=== PATIENT | male | born 1945 | race Caucasian/White ===

== ENCOUNTER 2024-09-01 14:28 | Outpatient (CLI) | payer MEDICARE | END 2024-09-01 14:29 | disposition home or self-care (01) | LOC: CSHULT 14:28 | PROVIDERS: ATTEND Family Medicine | DX: R06.09 Other forms of dyspnea (principal); R06.01 Orthopnea; I25.10 Atherosclerotic heart disease of native coronary artery without angina pectoris; R01.1 Cardiac murmur, unspecified; I35.0 Nonrheumatic aortic (valve) stenosis; I08.3 Combined rheumatic disorders of mitral, aortic and tricuspid valves | CPT/HCPCS: 93306 ==